=== PATIENT | female | born 1990 | race Caucasian/White ===

== ENCOUNTER 2017-05-24 07:25 | Inpatient (IN) | payer OTHER ==
[~2017-05-24] VITALS: Ht 167.6 cm; Wt 115.7 kg
[~2017-05-24 07:25] MED LIST: ATEN50TA8 PO; FIORICET PO; LORA-741 PO; LOVAZA 1 GM PO; MOME50SP5; NORGTAB36 PO; ROSU40TA PO; TOPI25TA99 PO; [UNRECOGNIZED DRUG - CODE] PO
[2017-05-24] MEDS ORDERED: LACTATED RINGER'S 1000ML 1,000 ML IV PRN (07:59)
[2017-05-24] MEDS ORDERED: PENICILLIN G POTASSIUM IV 6 MU in DEXTROSE 5% 250ML 250 ML IV ONE (08:15)
[2017-05-24] MEDS: MISOPROSTOLTAB 50 MCG TAB PO SCH ×3 (08:27→16:39)
[2017-05-24 08:47] LABS: HEMATOCRIT 35.9 % (37-47); MEAN CELL VOLUME 88.6 fL (80-100); MEAN CORPUSCULAR HEMOGLOBIN 28.1 pg (25-34); MEAN CORPUSCULAR HGB CONC 31.8 g/dl (32-36); MEAN PLATELET VOLUME 10.3 fL (7.4-10.4); PLATELET COUNT 254 K/uL (130-400); RED BLOOD COUNT 4.05 M/uL (4.2-5.4); WHITE BLOOD COUNT 8.76 K/uL (4.8-10.8)
[2017-05-24 09:13] LABS: ALT/SGPT 20 U/L (12-78); AST/SGOT 16 U/L (15-37); BLOOD UREA NITROGEN 7 mg/dl (7-18); BUN/CREATININE RATIO 7.7 (10-20); CALCIUM 9.1 mg/dl (8.5-10.1); CARBON DIOXIDE 22 mmol/L (21-32); CHLORIDE 104 mmol/L (98-107); CREATININE 0.84 mg/dl (0.60-1.20); GLUCOSE 82 mg/dl (70-99); POTASSIUM 3.8 mmol/L (3.5-5.1); SODIUM 137 mmol/L (136-145)
[2017-05-24 09:15] LABS: ALB/GLOB RATIO 0.6 (0.9-2); ALKALINE PHOSPHATASE 140 U/L (45-117)
[2017-05-24] MEDS ORDERED: BUTORPHANOL TARTRATE 1 MG/ML VIAL IV PRN (12:00)
[2017-05-24] MEDS ORDERED: ASPI81TA28 PO (13:43)
[2017-05-24 14:00] VITALS: Ht 167.6 cm; Wt 115.7 kg
[2017-05-24] MEDS: LACTATED RINGER'S 1000ML 1,000 ML IV SCH (18:05)
[2017-05-24] MEDS ORDERED: EpHEDrine SULFATE INJ 50 MG/ML AMP ONE (19:27)
[2017-05-24] MEDS ORDERED: BUPIVACAINE 0.25% 30 ML VIAL ONE ×2 (19:27→22:12)
[2017-05-24] MEDS ORDERED: FENTANYL CITRATE INJ 50 MCG/1 ML 2 ML VIAL ONE ×2 (19:28→22:21)
[2017-05-24] MEDS ORDERED: FENTANYL 2MCG/ML ROPIV 1.25MG/ML 100ML BAG EPI ONE (19:28)
[2017-05-24] MEDS ORDERED: LACTATED RINGER'S 1000ML 500 ML IV PRN ×2 (19:29→22:39)
[2017-05-24] MEDS ORDERED: OXYTOCIN 30 UNITS/500ML NSS IV PRN (19:30)
--- NOTE | 2017-05-24 20:40 | Anesthesiology Progress Note ---
Anesthesia Post Op Note Date & Time May 24, 2017 at 20:40 Vital Signs Pain Intensity: 7.0 Notes Mental Status: alert / awake / arousable, participated in evaluation Pt Amnestic to Procedure: Yes Nausea / Vomiting: adequately controlled Pain: adequately controlled Airway Patency, RR, SpO2: stable & adequate BP & HR: stable & adequate Hydration State: stable & adequate Anesthetic Complications: no major complications apparent
[2017-05-24] MEDS: PENICILLIN G POTASSIUM IV 3 MU in DEXTROSE 5% 100ML 100 ML IV PRN (22:04)
[2017-05-24] MEDS ORDERED: NALOXONE HCL INJ 1 MG in SODIUM CHLORIDE 0.9% 1000ML 1,000 ML IV PRN (22:39)
[2017-05-24] MEDS ORDERED: EpHEDrine SULFATE INJ 50 MG/ML AMP IV PRN (22:45)
[2017-05-24] MEDS ORDERED: DiphenhydrAMINE HCL 50 MG/ML VIAL IV PRN (22:45)
[2017-05-24] MEDS ORDERED: NALBUPHINE HCL INJ 10 MG/ML AMP IV PRN (22:45)
[2017-05-24] MEDS ORDERED: NALOXONE HCL INJ 0.4 MG/1 ML VIAL/CARP IV PRN (22:45)
[2017-05-24] MEDS: FENTANYL 2MCG/ML ROPIV 1.25MG/ML 100ML BAG EPI PRN (23:02)
[2017-05-25] MEDS ORDERED: BUPIVACAINE 0.25% 30 ML VIAL ONE (01:05)
[2017-05-25] MEDS ORDERED: FENTANYL CITRATE INJ 50 MCG/1 ML 2 ML VIAL ONE (01:06)
[2017-05-25] MEDS: FENTANYL 2MCG/ML ROPIV 1.25MG/ML 100ML BAG EPI PRN ×3 (01:49→19:09)
[2017-05-25] MEDS: PENICILLIN G POTASSIUM IV 3 MU in DEXTROSE 5% 100ML 100 ML IV PRN ×2 (02:03→05:46)
[2017-05-25] MEDS: LACTATED RINGER'S 1000ML 1,000 ML IV SCH (05:46)
[2017-05-25] MEDS ORDERED: LACTATED RINGER'S 1000ML 1,000 ML IV SCH (08:01)
--- NOTE | 2017-05-25 08:08 | Vaginal Delivery Summary ---
Vaginal Delivery Summary Delivery Note live female over intact perineum ARNULFO with Apgars 7/9 weight pending. Delayed cord clamping followed by cord blood collection and spontaneous delivery of intact placenta. Small second degree tear repaired with 3/0 Vicryl suture. EBL 350 ml. Final sponge, needle and instrument count are correct. Mom and baby stable.
[2017-05-25] MEDS ORDERED: DIPHTHERIA/TETANUS/PERTUSSIS 0.5 ML SYR/VIAL IM. ONE (08:15)
[2017-05-25] MEDS ORDERED: OXYCODONE/ACETAMINOPHEN 5-325 TAB PO PRN (08:15)
[2017-05-25] MEDS ORDERED: BENZOCAINE 20% AER SPR 82.5 GM CAN EXT PRN (08:15)
[2017-05-25] MEDS ORDERED: LANOLIN OINT EXT PRN ×2 (08:15)
[2017-05-25] MEDS ORDERED: OXYTOCIN 30 UNITS/500ML NSS IV PRN (08:15)
[2017-05-25] MEDS ORDERED: MEASLES, MUMPS & RUBELLA VIRUS VIAL SQ. ONE (08:15)
[2017-05-25] MEDS ORDERED: SUPERCREAM 0.870 % 15GM JAR EXT PRN (08:15)
[2017-05-25] MEDS ORDERED: HYDROCORTISONE ACETATE 25 MG SUPP PR PRN (08:15)
[2017-05-25] MEDS ORDERED: ACETAMINOPHEN/CODEINE 300/30MG TAB PO PRN ×2 (08:15)
[2017-05-25] MEDS ORDERED: ACETAMINOPHEN 325 MG TAB PO PRN (08:15)
[2017-05-25] MEDS: IBUPROFEN 600 MG TAB PO PRN ×3 (09:31→19:15)
--- NOTE | 2017-05-25 09:49 | Anesthesia Procedure Note ---
Anesthesia Epidural Removal Nt Date & Time May 25, 2017 at 09:48 Vital Signs Pain Intensity: 4.0 Notes Mental Status: alert / awake / arousable, participated in evaluation Nausea / Vomiting: adequately controlled Pain: adequately controlled Airway Patency, RR, SpO2: stable & adequate BP & HR: stable & adequate Hydration State: stable & adequate Neuraxial Anesthesia: was administered Anesthetic Complications: no major complications apparent, pt satisfied with anesthetic care Epidural: removed without complications, with tip intact
[2017-05-25 10:30] VITALS: BP 135/87; PULSE 119; O2SAT 98
[2017-05-25 11:30] VITALS: BP 129/87; PULSE 116; TEMP 36.9; O2SAT 96
[2017-05-25 15:25] VITALS: BP_SYST 132; BP_SYST 133; BP_DIAS 90; BP_DIAS 94; PULSE 118; TEMP 36.6; O2SAT 97
[2017-05-25] MEDS: DOCUSATE SODIUM 100 MG CAP PO SCH (19:15)
[2017-05-25 19:30] VITALS: BP 144/94; PULSE 101; TEMP 36.5; O2SAT 98
[2017-05-26] VITALS (8 sets, daily range): BP systolic 128–168; BP diastolic 82–94; PULSE 71–99; TEMP 36.5–37; O2SAT 99
[2017-05-26] MEDS: IBUPROFEN 600 MG TAB PO PRN ×2 (00:59→05:26)
[2017-05-26] MEDS: DOCUSATE SODIUM 100 MG CAP PO SCH ×2 (08:35→19:45)
--- NOTE | 2017-05-26 09:20 | OB/GYN Progress Note ---
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 Subjective conversation w/ patient, physical exam Ambulation: ambulating normally Passing Gas: Yes Diet Tolerance: Regular Diet Lochia: Moderate Feeding Type: Breast Feeding Review of Systems Constitutional: No fever, No chills, No sweats, No weight loss, No weakness, No fatigue, No problem reported Respiratory: No cough, No sputum, No wheezing, No shortness of breath, No dyspnea on exertion, No dyspnea at rest, No hemoptysis, No problem reported Cardiac: No chest pain, No orthopnea, No PND, No edema, No claudication, No palpitations, No problem reported Breast: No see HPI, No breast lump, No change in shape, No nipple discharge, No breast pain, No problem reported Abdomen: No pain, No nausea, No vomiting, No diarrhea, No constipation, No GI bleeding, No problem reported Female : No see HPI, No dysuria, No urinary frequency, No hematuria, No incontinence, No abnormal vaginal bleeding, No vaginal discharge, No problem reported Objective Vital Signs Date Time Temp Pulse Resp B/P (MAP) Pulse Ox O2 Delivery O2 Flow Rate FiO2 05/26/17 04:00 36.6 90 18 136/88 (104) Room Air 05/26/17 00:30 36.5 92 18 143/94 (110) Room Air 05/26/17 00:30 Room Air 05/25/17 19:30 36.5 101 16 144/94 (111) 98 Room Air 05/25/17 15:25 97 Room Air 05/25/17 15:25 36.6 118 20 133/90 (104) 97 Room Air 132/94 (107) 05/25/17 11:30 36.9 116 20 129/87 (101) 96 Room Air 05/25/17 10:30 119 20 135/87 (103) 98 Room Air 05/25/17 10:30 98 Room Air Physical Exam General Appearance: WELL-APPEARING, WD/WN, NO APPARENT DISTRESS Respiratory/Chest: chest non-tender, lungs clear, normal breath sounds, no respiratory distress, no accessory muscle use Cardiovascular: regular rate, rhythm, no edema, no gallop, no JVD, no murmur Abdomen: normal bowel sounds, non tender, soft, no organomegaly, no pulsatile mass Fundus: Firm Incision Description: Clean, Dry & Intact Extremities: normal range of motion, non-tender, normal inspection, no pedal edema, no calf tenderness Laboratory Results Last 24 Hours Test 05/26/17 06:21 Hemoglobin 7.8 g/dL Hematocrit 24.0 % Assessment and Plan Day Number: 1 Continue Routine Care: PPD #1 Anemia- On Iron tabs pt doing well d/c home tomorrow
[2017-05-26] MEDS: FERROUS SULFATE 325 MG TAB PO SCH ×2 (09:26→12:53)
[2017-05-26] MEDS: PRENATAL VITAMIN TAB PO SCH (09:26)
[2017-05-26 12:37] LABS: HEMATOCRIT 25.1 % (37-47)
[2017-05-26] MEDS ORDERED: BISACODYL 5 MG TABEC PO SCH (20:00)
[2017-05-27] MEDS ORDERED: BISACODYL 10 MG SUPP PR PRN (07:00)
[2017-05-27 07:15] VITALS: BP 142/86; PULSE 80; TEMP 36.6; O2SAT 99
--- NOTE | 2017-05-27 07:46 | OB/GYN Progress Note ---
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 Patient is seen and examined. She feels well, no complaints. Ambulating without dizziness Voiding without difficulty Tolerating regular diet with out N&V Bleeding is minimal No fever/ chills/ CP/ SOB/ N&V/ Leg pain Breast feeding without problems Date Time Temp Pulse Resp B/P (MAP) Pulse Ox O2 Delivery O2 Flow Rate FiO2 05/27/17 07:15 36.6 80 20 142/86 (104) 99 Room Air 05/26/17 23:45 Room Air 05/26/17 23:45 36.6 71 16 128/82 (97) 99 Room Air 05/26/17 19:40 96 148/92 (110) 05/26/17 16:15 143/85 (104) 05/26/17 15:35 99 Room Air 05/26/17 15:35 37.0 92 18 168/91 (116) 99 Room Air 05/26/17 12:00 36.7 84 18 143/89 (107) Room Air 05/26/17 08:00 36.8 99 18 138/93 (108) Room Air 05/26/17 08:00 Room Air Last 24 Hours Test 05/26/17 12:10 Hemoglobin 7.8 g/dL Hematocrit 25.1 % PE: General: Alert, orientedx3, NAD Abd: soft, NT, fundus firm, below Umbilicus Perineum intact, Lochia rubra minimal Ext; NT, no edema AP: 26 yo s/p , ppd# 2 VSS Afebrile doing well On Atenolol for HTN Anemic. asymptomatic, on iron Continue routine care Instructions were given when to call All questions were answered D/C home , f/u in office
[2017-05-27] MEDS ORDERED: FRRS300 PO (07:48)
[2017-05-27] MEDS ORDERED: MTR600X PO (07:48)
[2017-05-27] MEDS ORDERED: PRENTAB26 PO (07:48)
[2017-05-27] MEDS ORDERED: CLC100 PO (07:48)
[2017-05-27] MEDS ORDERED: TNR50 PO (07:48)
--- NOTE | 2017-05-27 07:49 | Discharge Instructions ---
Discharge Instructions Date of Service May 27, 2017. Admission Reason for Admission: Induction Discharge Discharge Diagnosis / Problem: Discharge Goals Goal(s): Routine recovery after delivery Medications Continue Dispensed Medications: lansinoh Activity Recommendations Activity Limitations: as noted below Lifting Limitations: gradually increase as tolerated Exercise/Sports Limitations: until after follow-up appointment May Resume Sexual Activity: after follow-up appointment Shower/Bathe: no limitations Driving or Machine Use: ACTIVITY RECOMMENDATIONS: * Gradual return to full activity over the next 2-3 weeks. * No lifting - nothing heavier than baby over the next 2-3 weeks. * Do not engage in vigorous exercise, sexual activity or sports until cleared by your physician. * Do not drive or operate any motorized equipment until cleared by your physician. * You may shower/bathe daily. BREAST CARE: If you are not breast feeding: * Wear a supportive bra 24 hours a day for one to two weeks. * Avoid stimulating your breasts and nipples as much as possible during the first few weeks after delivery. * When taking a shower, have the warm water hit your back, not breasts. * When your breasts feel full, apply ice packs. Usually three to four times a day helps ease the discomfort. * Take a mild pain medication (Tylenol/Motrin) when you are uncomfortable. If breast feeding: * Use breast milk to lubricate nipples. Lansinoh cream may be used for sore nipples. You do not need to remove cream prior to breast feeding. If using a different brand of cream, check the label for directions regarding removal of cream prior to nursing. * Wear a supportive bra. * If having problems with breasts or breast feeding, call a test consultant or your health care provider. EPISIOTOMY CARE: After delivery, if you have an episiotomy (stitches), the following steps will ease discomfort and aid healing. * For the first 24 hours after delivery, place ice packs next to your episiotomy to help reduce swelling. * After the first 24 hour-period, sitz baths, either portable or in the tub, are suggested. A shower with a shower arm sprayed over the episiotomy may be comforting. * Marie care should be done after each voiding and bowel movement. Squirt warm water from a plastic bottle over the perineum (region of the body between the anus and urinary opening) and pat dry. * Use Dermoplast to ease discomfort. Shake container. [place] directly over the episiotomy. * Place a Tucks on a clean sanitary pad next to your episiotomy. OVER THE COUNTER MEDICATION: * For discomfort or pain, you may use Acetaminophen (Tylenol), Ibuprofen (Advil ), or Naproxen (Aleve) following the package directions. * For constipation you may use Colace following the package directions. SPECIAL CARE INSTRUCTIONS: When you are discharged from the hospital, it is important for you to follow the instructions listed below: * During the first week at home, you should be able to care for yourself and your baby. In addition, the usual light household activities are encouraged. * Limit your activities to the way you feel. Do not try to clean the house or move furniture. Be sensible. * If you actively engage in sports and have done so up until the time of your delivery, you may resume these activities as soon as you feel able. This may take up to one month or even longer. Use good judgment. * Continue to take your vitamins for at least six weeks after the of your baby. * Your diet need not be limited unless you were on a special diet before your delivery. Breast-feeding mothers need around 2500 calories per day and at least 64-80 ounces of fluid per day (8 to 10 glasses). * You should eat foods from the four major food groups. Crash diets or fad diets are to be avoided. Eating lean meats, fresh fruits and vegetables, low-fat dairy products, high fiber foods and a regular exercise program, will help you get back to your pre- weight without putting your health at risk. * Constipation is sometimes a problem after delivery. Take a mild laxative as needed. If breast feeding, Milk of Magnesia is acceptable to use. You may use a suppository or Fleets enema if no episiotomy. * A daily shower or tub bath is suggested. Be sure to thoroughly and gently dry the perineum. * A bloody vaginal discharge will usually continue until around four weeks post . A small amount of bleeding may continue for as long as six weeks. Vaginal discharge changes from the bright red bleeding after delivery to pink then brownish and finally yellowish-pink before becoming white and disappearing. * Bleeding may increase with activity. Your first period may come in 4-8 weeks. If you are breast feeding, your period may be delayed even longer. * [place] (sex) can begin whenever both you and your partner feel comfortable and do not have any form of genital infection. It is recommended that you wait until after your return appointment and discuss with your physician. If you have questions, please talk to your health care practitioner. A condom should be used to prevent infection and . * Foreplay, gentle intercourse and lubrication is very important the first several times to prevent pain. A water-based lubricant such as K-Y jelly or Astroglide may be used. * Tampons may be used six weeks after delivery. * Douching should be avoided for 6 weeks after delivery. * If you have RH negative blood and your baby is RH positive, you will receive RHOGAM by injection prior to discharge. The nurse will give you a card to keep with you that has the date and place that you received RHOGAM after delivery. * During your care, you had a Rubella screen done to check for the presence of rubella antibodies in your blood. If your test was negative, you will receive a Rubella vaccine prior to discharge. This vaccine may cause a fever, soreness at the injection site and flu-like symptoms. If these symptoms persist, notify your health care practitioner. is not advised for three months after a Rubella vaccine. There is a higher chance of having a baby with defects if conceived within three months of getting the vaccine. * If you were discharged 24 hours from delivery or before 48 hours: Visiting nurses will come to your home 48 hours after discharge to assess you and your baby. The visiting nurse will meet with you while you are in the hospital to arrange a time and get directions to your home. * Verbalizes understanding of car seat law as reviewed with patient nursing. * Car Seat hand-out given and reviewed with patient by nursing. * Shaken baby information reviewed with patient by nursing. Call you doctor if: * Heavy bleeding (saturating several pads an hour) or passing clots the size of your fist. * A fever >101 degrees F (38.3 degrees C) on two occasions four hours apart and/or chills. * Unusual pain in the pelvic or vaginal areas. * "Baby Blues" lasting longer than two weeks. If you have any questions or concerns, call your health care practitioner at . FOLLOW-UP VISIT: * Please call the office at to schedule a 6 week examination. It is important you keep this appointment. * It is important for you to make arrangements for either yearly or twice yearly check-ups thereafter. . Current Hospital Diet Patient's current hospital diet: Regular OB Diet Discharge Diet Recommended Diet: Regular Diet Pending Studies Studies pending at discharge: no Medical Emergencies . Who to Call and When: Medical Emergencies: If at any time you feel your situation is an emergency, please call 911 immediately. . Non-Emergent Contact Non-Emergency issues call your: Primary Care Provider, Surgeon Call Non-Emergent contact if: temperature is above 100.5, your pain is not controlled, your pain is worsening . . "Provider Documentation" section prepared by [place]. . VTE Core Measure Inpt VTE Proph given/why not?: Treatment not indicated
[2017-05-27] MEDS: PRENATAL VITAMIN TAB PO SCH (07:58)
[2017-05-27] MEDS: DOCUSATE SODIUM 100 MG CAP PO SCH (07:58)
[2017-05-27] MEDS: FERROUS SULFATE 325 MG TAB PO SCH (07:58)
[2017-05-27] MEDS: IBUPROFEN 600 MG TAB PO PRN (09:21)
[2017-05-27 13:00] VITALS: BP_DIAS 86; PULSE 80; TEMP 36.6
== END 2017-05-27 13:12 | disposition home or self-care (01) | DRG 775 ==
LOC: C.LD 07:25 → C.OBG 05-25 10:35
PROVIDERS: ADMIT Obstetrics & Gynecology; ATTEND Obstetrics & Gynecology
PROC: 0KQM0ZZ Repair Perineum Muscle, Open Approach (ICD-10-PCS; principal; 2017-05-25)
PROC: 10E0XZZ Delivery of Products of Conception, External Approach (ICD-10-PCS; principal; 2017-05-25)
DX: O99.214 Obesity complicating childbirth (principal); Z68.41 Body mass index [BMI] 40.0-44.9, adult; O99.824 Streptococcus B carrier state complicating childbirth; O70.1 Second degree perineal laceration during delivery; E66.9 Obesity, unspecified; Z3A.39 39 weeks gestation of pregnancy; Z37.0 Single live birth

== ENCOUNTER 2017-06-23 20:00 | Emergency (ER) | payer OTHER ==
[~2017-06-23] VITALS: Ht 167.6 cm; Wt 106.3 kg
[~2017-06-23 20:00] MED LIST changes: -ATEN50TA8 PO; +CLC100 PO; -FIORICET PO; +FRRS300 PO; -LORA-741 PO; -LOVAZA 1 GM PO; -MOME50SP5; +MTR600X PO; -NORGTAB36 PO; +PRENTAB26 PO; -ROSU40TA PO; +TNR50 PO; -TOPI25TA99 PO; -[UNRECOGNIZED DRUG - CODE] PO
[2017-06-23 20:02] VITALS: TEMP 36.7; Ht 167.6 cm; Wt 106.3 kg
[2017-06-23] MEDS ORDERED: ATEN50TA8 PO (20:37)
[2017-06-23] MEDS ORDERED: FERR325T5 PO (20:37)
[2017-06-23] MEDS ORDERED: PSYL1CAP4 PO (20:37)
[2017-06-23] MEDS ORDERED: PRENTAB26 PO (20:37)
[2017-06-23] MEDS ORDERED: DOCU100C31 PO (20:37)
[2017-06-23 22:13] VITALS: BP 127/89; PULSE 75; O2SAT 97
[2017-06-23] MEDS ORDERED: BISA-16 PO (22:48)
--- NOTE | 2017-06-24 00:47 | EMERGENCY ROOM VISIT NOTE ---
History Report prepared by Chinedu: Suma Norton Under the Supervision of: Dr. Pete Christine M.D. First contact with patient: 21:15 Chief Complaint: RECTAL BLEEDING Stated Complaint: RECTAL BLEEDING Nursing Triage Summary: 29 days post , rectal bleeding today, blood present when wiping, History of Present Illness The patient is a 26 year old female who presents to the Emergency Room with complaints of intermittent rectal bleeding beginning today. The patient states that she is 28 days post and has been having constipation since her . She notes that she did have a hemorrhoid during her and has been using the cream that they gave her when she was here. She reports that she has been taking iron since she had the baby and she is supposed to take it for 6 weeks. The patient states that she has been taking 2 stool softeners a day but has been passing large hard stools despite the softeners. She notes that there is some blood with her stool in the toilet bowl and she has blood with wiping. She notes that she did have a very hard large bowel movement today that she strained for significantly. Pt denies LOC, headache, fevers, chills, diaphoresis, visual changes, neck pain, chest pain, breathing difficulties, nausea, vomiting, abdominal pain, back pain, melena, hematochezia, urinary symptoms, numbness, weakness, lymphadenopathy, rash, or other complaints. Source of History: patient Onset: today Position: other (rectum) Quality: other (bleeding) Timing: intermittent Note: Pt complains of constipation and hemorrhoids. Review of Systems See HPI for pertinent positives and negatives. A total of ten systems were reviewed and were otherwise negative. Past Medical & Surgical Medical Problems: (1) Dental abscess (2) Elective induction of labor planned (3) HTN (hypertension) (4) Hyperlipidemia (5) Obesity affecting in third trimester Surgical Problems: (1) S/P appendectomy (2) [place] teeth removed Family History No pertinent family history stated. Social History Smoking Status: Never Smoker Drug Use: none Marital Status: Housing Status: lives with family Occupation Status: employed Current/Historical Medications Scheduled Atenolol (Tenormin), 50 MG PO QPM Docusate Sodium (Docusate Sodium), 100 MG PO BID Ferrous Sulfate (Ferrous Sulfate), 325 MG PO DAILY Multivit/Min/Iron/Fol Ac/Pren ( Vitamin), 1 TAB PO DAILY Psyllium (Fiber), 0.52 MG PO DAILY Scheduled PRN Bisacodyl (Dulcolax), 1-2 TAB PO UD PRN for Constipation Allergies Coded Allergies: No Known Allergies (Unverified , 05/25/17) Physical Exam Vital Signs Date Time Temp Pulse Resp B/P (MAP) Pulse Ox O2 Delivery O2 Flow Rate FiO2 06/23/17 22:13 75 18 127/89 97 Room Air 06/23/17 20:02 36.7 83 18 134/91 100 Room Air Physical Exam GENERAL: Awake, alert, well-appearing, in no distress HENT: Normocephalic, atraumatic. Oropharynx unremarkable. EYES: Normal conjunctiva. Sclera non-icteric. NECK: Supple. No nuchal rigidity. FROM. No JVD. RESPIRATORY: Clear to auscultation. CARDIAC: Regular rate, normal rhythm. Extremities warm and well perfused. Pulses equal. ABDOMEN: Soft, non-distended. No tenderness to palpation. No rebound or guarding. No masses. RECTAL: Deferred. MUSCULOSKELETAL: Chest examination reveals no tenderness. The back is symmetrical on inspection without obvious abnormality. There is no CVA tenderness to palpation. No joint edema. LOWER EXTREMITIES: Calves are equal size bilaterally and non-tender. No edema. No discoloration. NEURO: Normal sensorium. No sensory or motor deficits noted. SKIN: No rash or jaundice noted. RECTAL: Mild to moderate hemorrhoid present, no active bleeding. Multiple mucosa fissures noted without signs of infection. Medical Decision & Procedures ED Course 2236: I reevaluated and updated the patient. 225: I reevaluated the patient. Discussed results and discharge instructions: She verbalized understanding and agreement. The patient is ready for discharge. Medical Decision Triage Nursing notes reviewed. The patient's presentation and history were concerning for rectal bleeding and constipation. Etiologies such as fissure, hemorrhoids, diverticulosis, AVM, coagulopathy, colitis, inflammatory bowel disease, malignancy, Karen-Fuentes tear, esophagitis , peptic ulcer disease, variceal bleed, as well as others were entertained. The patient was evaluated. Physical examination reveals mild hemorrhoidal disease. There is no signs of infection. She had several anal fissures noted. There is no active bleeding. The patient has a benign abdomen. There was no indication for blood work at this time. The patient is on iron but is doing well. She has no symptoms of significant anemia. As she has had significant constipation developed since taking the iron I told her to hold this temporarily. She will add Dulcolax, increase fiber in her diet, increase fluids , and continue the Colace. I discussed sitz baths and also continuing Preparation H or topical treatments. She worsens in any way she will be back. She will follow-up as an outpatient. I gave my usual and customary discussion regarding this issue. By the evaluation outlined above other emergent etiologies such as those listed in the differential, as well as others, were deemed relatively unlikely. The patient was educated about the findings as listed above. All questions were answered and the patient was pleased with the treatment. Return instructions were outlined and the patient was discharged in stable condition. The patient was referred to her PCP for follow-up for a recheck of the current condition. Medication Reconcilliation Current Medication List: was personally reviewed by me Blood Pressure Screening Patient's blood pressure: Elevated blood pressure Blood pressure disposition: Elevated BP felt to be situational Impression Primary Impression: Constipation Additional Impression: Anal fissure Scribe Attestation The scribe's documentation has been prepared under my direction and personally reviewed by me in its entirety. I confirm that the note above accurately reflects all work, treatment, procedures, and medical decision making performed by me. Departure Information Dispostion Home / Self-Care Prescriptions Bisacodyl (DULCOLAX) 5 Mg Tab 1-2 TAB PO UD Y for Constipation, #8 TAB Prov: Pete Christine MD 06/23/17 Referrals No Doctor, Assigned (PCP) Forms HOME CARE DOCUMENTATION FORM, IMPORTANT VISIT INFORMATION, WORK / SCHOOL INSTRUCTIONS Patient Instructions [facility] Additional Instructions Hold the iron supplement until follow-up. Rest and drink plenty of fluids. Dulcolax 1-2 tabs daily until constipation results. Colace, 100mg twice daily to avoid constipation. Continue Preparation H. Increase fiber in your diet. Sitz bath or shower after each bowel movement. Avoid straining if possible. Return to the ER for worsening rectal pain, vomiting, fevers, bloody stools, or as needed. Follow-up with your primary care physician in 2 to 3 days for a recheck of your current condition. Problem Qualifiers
== END 2017-06-23 22:57 | disposition still patient (30) ==
LOC: C.EDB 20:01
DX: K59.00 Constipation, unspecified (principal); K60.2 Anal fissure, unspecified; K62.5 Hemorrhage of anus and rectum; O90.89 Other complications of the puerperium, not elsewhere classified

== ENCOUNTER 2020-12-06 05:32 | Inpatient (IN) ==
--- NOTE | 2020-12-05 15:17 | Anesthesiology Progress Note ---
Date of Service December 05, 2020 Subjective Patient late add-on for scheduled 12/06 for macrosomia. Patient did not have time to obtain preop Covid testing prior to DOS. Called and spoke with patient 12/05: travel screen negative, no known COVID-19 positive contacts, no current COVID-19 related symptoms. Case reviewed with Dai Bonner, decision for [facility] AM DOS (order placed). Patient, Dr. Henson, surgeon's office and L&D made aware.
[2020-12-06] MEDS ORDERED: LACTATED RINGER'S 1,000 ML IV SCH ×2 (05:45→09:15)
[2020-12-06] MEDS ORDERED: CITRIC ACID/SODIUM CITRATE 15 ML UDC PO SCH (06:00)
[2020-12-06] MEDS ORDERED: ceFAZolin 2000MG 2,000 MG/15 ML SYR IV SCH (06:00)
[2020-12-06 06:02] LABS: Basophils # (auto) 0.01 K/uL (0-0.2); Basophils % (auto) 0.1 %; Eosinophils % (auto) 1.3 %; Hematocrit (blood only) 34.6 % (37-47); Hemoglobin 11.8 g/dL (12.0-16.0); Immature Granulocytes # (auto) 0.03 K/uL (0.00-0.02); Immature Granulocytes % (auto) 0.4 %; Lymphocytes # (auto) 1.75 K/uL (1.2-3.4); Lymphocytes % (auto) 21.9 %; Mean Corpuscular Hemoglobin 30.9 pg (25-34); Mean Corpuscular Volume 90.6 fL (80-100); Mean Platelet Volume 9.8 fL (7.4-10.4); Monocytes # (auto) 0.73 K/uL (0.11-0.59); Monocytes % (auto) 9.1 %; Neutrophils # (auto) 5.38 K/uL (1.4-6.5); Neutrophils % (auto) 67.2 %; Platelet Count 209 K/uL (130-400); RDW Coefficient of Variation 13.7 % (11.5-14.5); RDW Standard Deviation 44.8 fL (36.4-46.3); Red Blood Count 3.82 M/uL (4.2-5.4)
[2020-12-06 06:15] LABS: Mean Corpuscular Hgb Conc 34.1 g/dL (32-36)
[2020-12-06] MEDS: LACTATED RINGER'S 1,000 ML IV SCH ×2 (07:01→20:28)
--- NOTE | 2020-12-06 07:27 | Anesthesiology Consultation ---
Date of Service December 06, 2020 Assessment & Plan (1) Encounter for pre-operative examination: Chart Review Chart Review: Acceptable Risk for Surgery and Patient NOT seen in Pre Admission Testing Consults Requested none ASA ASA2 Proposed Anesthesia Anesthesia Type: Spinal (+ intrathecal naracotics) Risk / Benefits Reviewed With: PT / POA / Parent / Guardian, Accepts Plan and Informed Consent Obtained History Surgery Operation Date: 12/06/20 07:30 Proposed Procedures p Section - Adeel Nobles MD Height/Weight Height: 5 ft 6 in Weight: 117 kg Allergies Allergy/AdvReac Type Severity Reaction Status Date / Time No Known Drug Allergies Allergy Verified 12/05/20 14:28 Medications Home Medications Medication Instructions Recorded Confirmed Last Taken PNV cmb#95-ferrous fumarate-FA 1 tab PO QAM 12/26/19 12/06/20 12/05/20 [] cholecalciferol (vitamin D3) 5,000 unit PO QAM 12/26/19 12/06/20 12/05/20 [Vitamin D3] labetalol 100 - 150 mg PO BID 12/26/19 12/06/20 12/06/20 05:00 metformin 500 mg PO BID 12/26/19 12/06/20 12/04/20 Active Medications Generic Name Dose Route Start Last Admin Trade Name Freq PRN Reason Stop Dose Admin Lactated Ringer's 1,000 mls @ 125 mls/hr 12/06/20 06:35 12/06/20 07:01 Lr IV 01/05/21 06:34 125 mls/hr .Q8H JETHRO Administration Past Medical History Medical History Anal fissure Cardiac murmur A CHILD Chronic back pain Constipation Familial hypercholesterolemia 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 COLON HTN (hypertension) Hx of migraines Hyperlipidemia PCOS (polycystic ovarian syndrome) ON METFORMIN Ureteral calculus Exercise / Class Metabolic Activity II 4-5 Yardwork/Stairs/Walk up hill Past Family History Family History Mother Family history of diabetes mellitus PRE DIABETIC Other Family history non-contributory Past Surgical History Surgical History History of anesthesia reaction EPIDURAL WITH LAST VAGINAL DELIVERY WAS NOT EFFECTIVE-DID NOT PROVIDE PAIN RELIEF ( 3 YRS AGO) S/P appendectomy [place] teeth removed Past Anesthesia History No Hx of Anesthesia Complications and No Family Hx of Anesthesia Complications History of PONV No Hx of PONV and No Hx of Motion Sickness Social History Smoking Status: Never smoker Do You Dip or Chew Tobacco: No Hx Alcohol Use: No Hx Substance Use: No Physical Exam Vital Signs Last Vital Signs Temp 37.2 C 12/06/20 05:47 Pulse 98 H 12/06/20 05:46 Resp 18 12/06/20 05:47 BP 139/85 12/06/20 05:46 Constitutional + obese ENMT Mouth: no dentition abnormality Thyromental Distance: > or= 3.5 Finger Breadths Mallampati Class: II Neck normal visual inspection Respiratory normal respiratory effort Auscultation: lungs clear to auscultation bilaterally Cardiovascular Rate/Rhythm: regular rate and regular rhythm Psychiatric Orientation: alert Testing Laboratory Results 12/06/20 05:48 Blood Type A Positive 12/06/20 05:48 Antibody Screen NEGATIVE 12/06/20 05:48
[2020-12-06] MEDS ORDERED: MoRPHine SULFATE PF 1 MG/ML 10 ML AMP/VIAL ONE (07:34)
[2020-12-06] MEDS ORDERED: fentaNYL citrate 100 MCG/2 ML VIAL ONE (07:34)
--- NOTE | 2020-12-06 07:35 | History & Physical Bridge Note ---
Date of Service December 06, 2020 History & Physical Bridge Note I have examined the patient, reviewed the History & Physical and in the interval since the performance of the History & Physical I have noted the following changes of clinical significance: no changes noted
[2020-12-06] MEDS ORDERED: OXYTOCIN 10 UNITS/ML VIAL IM ONE (08:26)
[2020-12-06] MEDS ORDERED: METHYLERGONOVINE MALEATE 0.2 MG/ML AMP ONE (08:30)
[2020-12-06] MEDS ORDERED: PHENYLEPHRINE 100MCG/ML 5ML SYR ONE (08:30)
[2020-12-06] MEDS ORDERED: KETOROLAC 30 MG/ML VIAL ONE ×3 (08:30→20:34)
[2020-12-06] MEDS ORDERED: OXYTOCIN 10 UNITS/ML VIAL ONE (08:30)
[2020-12-06] MEDS ORDERED: miSOPROStoL 200 MCG TAB ONE (08:48)
--- NOTE | 2020-12-06 09:08 | Post Operative Brief Note ---
Immediate Post Op Note v1 Date of Surgery December 06, 2020 Pre & Post Diagnosis Operation Date: 12/06/20 07:30 Pre-Op Diagnosis: to Term; Primary for LGA Post-Op Diagnosis: to Term; Primary for LGA I identified the patient and participated in the time-out.: Yes Procedure Operation Date: 12/06/20 07:30 Actual Procedures p Section; Live Male at 0811(Bilateral) - Adeel Nobles MD Surgeon Adeel Nobles MD [employer] dr Louis Estimated Blood Loss 600 Findings Consistent with Post-Op Diagnosis Drains Maier Catheter
[2020-12-06] MEDS ORDERED: SENNA 8.6 MG TAB PO PRN (09:09)
[2020-12-06] MEDS ORDERED: MAGNESIUM HYDROXIDE SUSP 30 ML UDC PO PRN (09:09)
[2020-12-06] MEDS ORDERED: PROMETHAZINE HCL 25 MG in SODIUM CHLORIDE 0.9% 50 ML IV PRN (09:09)
[2020-12-06] MEDS ORDERED: SUPERCREAM 0.870% 15 GM JAR EXT PRN (09:09)
[2020-12-06] MEDS ORDERED: diphenhydrAMINE 50 MG/ML VIAL IV PRN (09:09)
[2020-12-06] MEDS ORDERED: diphenhydrAMINE Capsule 25 MG CAP PO PRN (09:09)
[2020-12-06] MEDS ORDERED: DIPHTHERIA/TETANUS/PERTUSSIS 0.5 ML SYR/VIAL IM ONE (09:09)
[2020-12-06] MEDS ORDERED: BENZOCAINE 20% AER SPR 82.5 GM CAN EXT PRN (09:09)
[2020-12-06] MEDS ORDERED: HYDROCORTISONE ACETATE 25 MG SUPP PR PRN (09:09)
[2020-12-06] MEDS ORDERED: ONDANSETRON INJ 2 MG/ML 2 ML VIAL IV PRN ×2 (09:09→12:11)
[2020-12-06] MEDS ORDERED: OXYTOCIN 20 UNITS in LACTATED RINGER'S 1,000 ML IV SCH (09:30)
[2020-12-06] MEDS ORDERED: NALOXONE HCL 1 MG in SODIUM CHLORIDE 0.9% 1000ML 1,000 ML IV PRN ×2 (09:53→12:11)
--- NOTE | 2020-12-06 11:03 | Operative Report (OR) ---
DATE OF OPERATION: 12/06/2020 INDICATION FOR SURGERY: 1. at term. 2. Suspected macrosomia, estimated weight was 4700 grams; this was a recommendation from Maternal/ Medicine. PREOPERATIVE DIAGNOSES: 1. at term. 2. Suspected macrosomia. POSTOPERATIVE DIAGNOSES: 1. at term. 2. Suspected macrosomia. SURGEON: Adeel Nobles MD. ANESTHESIA: Spinal. TELETYPIST: Melody Louis MD. PROCEDURE: Primary section. ESTIMATED BLOOD LOSS: 600 mL. INTRAVENOUS FLUIDS: 1200 mL. URINE OUTPUT: 150 mL of clear urine at the end of the procedure. FINDINGS: Normal uterus, tubes, and adnexa. The is a male in cephalic presentation, Apgars 8 and 8. Abdominal exam is otherwise unremarkable. COMPLICATIONS: None. DRAINS: Maier catheter. PATHOLOGY: Placenta and cord blood. DISPOSITION: Stable to recovery room. DESCRIPTION OF PROCEDURE: The patient is taken to the operating room where she is prepped and draped in normal sterile fashion. Timeout is called. A Pfannenstiel incision is made and carried down to the fascia. Fascia is incised in the midline and extended laterally on both sides. The fascia is sharply dissected off the rectus abdominus muscles superiorly and inferiorly. The abdomen is entered. Once inside the abdomen, an Vadim retractor is placed for retraction. Vesicouterine peritoneum is sharply dissected off the lower segment of the uterus. A transverse incision is made on the uterus and extended laterally on both sides with bandage scissors. Amniotomy is performed and is delivered. Mouth is suctioned, cord is clamped and cut and handed over to the waiting pediatric team. Details of the is in the pediatric record. Placenta is manually removed. Uterus is exteriorized and cleared of all clots and debris. Uterus is closed in 2 layers with Vicryl stitch. There is good hemostasis post repair. Vesicouterine peritoneum is approximated using 2-0 plain suture. Copious amount of irrigation is used to irrigate the abdomen. Uterus is returned into the abdominal cavity and fascia is closed in a running fashion using PDS suture. SubQ space is irrigated and approximated with 2-0 plain. Skin is closed with evens. All instruments are removed from the abdomen including retractors, sutures, needles and are accounted for x2. The patient is returned to recovery in stable condition. I attest to the content of the Intraoperative Record and any orders documented therein. Any exception s are noted below.
[2020-12-06] MEDS: ACETAMINOPHEN 1000 MG/100 ML IV IV PRN ×2 (11:27→18:16)
[2020-12-06] MEDS ORDERED: ePHEDrine sulfate 50 MG/ML AMP IV PRN (12:11)
[2020-12-06] MEDS ORDERED: LACTATED RINGER'S 500 ML IV PRN (12:11)
[2020-12-06] MEDS ORDERED: NALOXONE HCL 0.08 MG in SYRINGE 1.8 ML IV PRN (12:11)
[2020-12-06] MEDS ORDERED: MoRPHine SULFATE PF 1 MG/ML 10 ML AMP/VIAL INT SPINAL ONE (12:11)
[2020-12-06] MEDS ORDERED: NALOXONE HCL 0.4 MG/1 ML VIAL/CARP IV PRN (12:11)
[2020-12-06] MEDS ORDERED: NO NARCOTICS OR SEDATIVES SCH (12:15)
[2020-12-06] MEDS ORDERED: SODIUM CHLORIDE 0.9% 1000ML 1,000 ML IV SCH (12:15)
[2020-12-06] MEDS ORDERED: DC INTRASPINAL MORPHINE SCH (12:15)
--- NOTE | 2020-12-06 12:57 | Anesthesiology Progress Note ---
Date of Service December 06, 2020 Anesthesia Post Procedure Vital Signs Vital Signs: Temp Pulse Resp BP Pulse Ox 12/06/20 11:00 84 94 12/06/20 10:59 84 94 12/06/20 10:55 73 150/84 H 96 12/06/20 10:50 82 95 12/06/20 10:49 77 94 12/06/20 10:46 65 148/81 H 12/06/20 10:45 65 95 12/06/20 10:42 65 94 12/06/20 10:40 75 95 12/06/20 10:35 78 133/74 95 12/06/20 10:30 71 95 12/06/20 10:28 78 94 12/06/20 10:25 66 135/73 95 12/06/20 10:20 73 95 12/06/20 10:16 72 146/82 H 93 12/06/20 10:15 64 96 12/06/20 10:10 74 96 12/06/20 10:06 67 130/61 12/06/20 10:05 71 96 12/06/20 10:00 78 97 12/06/20 09:59 76 94 12/06/20 09:55 36.3 C L 69 22 144/90 H 97 12/06/20 09:50 80 98 12/06/20 09:46 71 140/89 12/06/20 09:45 78 97 12/06/20 09:40 82 97 12/06/20 09:36 73 136/66 12/06/20 09:35 77 98 12/06/20 09:30 78 99 12/06/20 09:26 89 137/76 12/06/20 09:25 86 20 97 12/06/20 09:20 78 100 12/06/20 09:16 86 117/79 12/06/20 09:15 85 96 12/06/20 09:10 81 99 12/06/20 09:06 90 109/78 90 12/06/20 09:05 78 98 12/06/20 09:00 75 99 12/06/20 08:55 36.3 C L 78 22 115/67 98 12/06/20 05:47 37.2 C 18 12/06/20 05:46 98 H 139/85 Transfer of Care Handoff Completed per policy Notes Mental Status: alert / awake / arousable Nausea / Vomiting: adequately controlled Pain: adequately controlled Airway Patency, RR, SpO2: stable & adequate BP & HR: stable & adequate Hydration State: stable & adequate Neuraxial Anesthesia: was administered and sensory block is resolving Anesthetic Complications: no major complications apparent and Pt Satisfied with anesthetic care
[2020-12-06] MEDS: diphenhydrAMINE 50 MG/ML VIAL IV PRN (17:08)
[2020-12-06] MEDS: SIMETHICONE 80 MG CHEW PO SCH ×2 (17:09→20:39)
[2020-12-06] MEDS ORDERED: KETOROLAC 30 MG/ML VIAL IV PRN (22:19)
[2020-12-07] MEDS: diphenhydrAMINE 50 MG/ML VIAL IV PRN (00:12)
[2020-12-07 06:37] LABS: Basophils # (auto) 0.01 K/uL (0-0.2); Basophils % (auto) 0.1 %; Eosinophils # (auto) 0.08 K/uL (0-0.5); Eosinophils % (auto) 0.9 %; Hematocrit (blood only) 32.6 % (37-47); Hemoglobin 10.8 g/dL (12.0-16.0); Immature Granulocytes # (auto) 0.02 K/uL (0.00-0.02); Immature Granulocytes % (auto) 0.2 %; Lymphocytes # (auto) 1.28 K/uL (1.2-3.4); Lymphocytes % (auto) 14.8 %; Mean Corpuscular Hemoglobin 30.3 pg (25-34); Mean Corpuscular Hgb Conc 33.1 g/dL (32-36); Mean Corpuscular Volume 91.3 fL (80-100); Mean Platelet Volume 9.6 fL (7.4-10.4); Monocytes # (auto) 0.64 K/uL (0.11-0.59); Monocytes % (auto) 7.4 %; Neutrophils % (auto) 76.6 %; Platelet Count 188 K/uL (130-400); RDW Coefficient of Variation 13.5 % (11.5-14.5); RDW Standard Deviation 44.2 fL (36.4-46.3); Red Blood Count 3.57 M/uL (4.2-5.4); White Blood Count 8.63 K/uL (4.8-10.8)
[2020-12-07] MEDS: SIMETHICONE 80 MG CHEW PO SCH ×2 (08:03→20:08)
[2020-12-07] MEDS: PRENATAL VITAMIN 1 TAB PO SCH (08:03)
[2020-12-07] MEDS: IBUPROFEN 600 MG TAB PO PRN ×3 (08:03→18:07)
[2020-12-07] MEDS: FERROUS SULFATE 325 MG TAB PO SCH (08:04)
[2020-12-07] MEDS: DOCUSATE SODIUM 100 MG CAP PO SCH ×2 (08:04→20:07)
[2020-12-07] MEDS: oxyCODONE/ACETAMINOPHEN 5mg/325mg TAB PO PRN ×3 (08:04→18:08)
--- NOTE | 2020-12-07 11:08 | Obstetrical Progress Note ---
Date of Service December 07, 2020 Assessment & Plan Admission and Anticipated Discharge Date Admission Date: December 06, 2020 Subjective POD#1 doing well passing gas tolerating diet Physical Exam Constitutional: WD/WN, vitals as above well developed and comfortable abdomen soft and non-tender neg Homans neg edema Results & Data ([facility]) Vital Signs (Past 12 Hours) Vital Signs Temp Pulse Resp BP Pulse Ox 12/07/20 07:40 37.1 C 99 H 20 112/81 12/07/20 04:00 36.7 C 84 16 119/79 94 12/07/20 02:00 18 99 12/07/20 01:00 16 100 12/07/20 00:00 16 100 12/06/20 23:50 36.5 C 76 16 120/80 100 Laboratory Results Laboratory Results - last 48 hr 12/06/20 12/06/20 12/06/20 05:48 05:48 05:50 WBC 8.00 RBC 3.82 L Hgb 11.8 L Hct 34.6 L MCV 90.6 MCH 30.9 MCHC 34.1 RDW Std Deviation 44.8 RDW Coeff of Jhon 13.7 Plt Count 209 MPV 9.8 Immature Gran % (Auto) 0.4 Neut % (Auto) 67.2 Lymph % (Auto) 21.9 Dorado % (Auto) 9.1 Eos % (Auto) 1.3 Baso % (Auto) 0.1 Neut # (Auto) 5.38 Lymph # (Auto) 1.75 [place] # (Auto) 0.73 H Eos # (Auto) 0.10 Baso # (Auto) 0.01 Immature Gran # (Auto) 0.03 H COVID-19 Eval Order Covid19 [facility] SARS-CoV-2, RNA, NAAT Blood Type A Positive Antibody Screen NEGATIVE 12/06/20 12/07/20 05:50 06:13 WBC 8.63 RBC 3.57 L Hgb 10.8 L Hct 32.6 L MCV 91.3 MCH 30.3 MCHC 33.1 RDW Std Deviation 44.2 RDW Coeff of Jhon 13.5 Plt Count 188 MPV 9.6 Immature Gran % (Auto) 0.2 Neut % (Auto) 76.6 Lymph % (Auto) 14.8 [place] % (Auto) 7.4 Eos % (Auto) 0.9 Baso % (Auto) 0.1 Neut # (Auto) 6.60 H Lymph # (Auto) 1.28 [place] # (Auto) 0.64 H Eos # (Auto) 0.08 Baso # (Auto) 0.01 Immature Gran # (Auto) 0.02 COVID-19 Eval Order SARS-CoV-2, RNA, NAAT NEGATIVE Blood Type Antibody Screen
[2020-12-07] MEDS ORDERED: bisacodyL 5 MG TABEC PO SCH (20:00)
[2020-12-07] MEDS ORDERED: LABETALOL HCL 100 MG TAB PO SCH (21:30)
[2020-12-08] MEDS: IBUPROFEN 600 MG TAB PO PRN ×3 (00:29→11:24)
[2020-12-08] MEDS: oxyCODONE/ACETAMINOPHEN 5mg/325mg TAB PO PRN ×3 (00:29→13:37)
[2020-12-08 06:37] LABS: Hematocrit (blood only) 31.8 % (37-47); Hemoglobin 10.4 g/dL (12.0-16.0)
[2020-12-08] MEDS: FERROUS SULFATE 325 MG TAB PO SCH (07:27)
[2020-12-08] MEDS: PRENATAL VITAMIN 1 TAB PO SCH (07:27)
[2020-12-08] MEDS: SIMETHICONE 80 MG CHEW PO SCH ×2 (07:27→14:54)
[2020-12-08] MEDS: DOCUSATE SODIUM 100 MG CAP PO SCH (07:28)
[2020-12-08] MEDS ORDERED: LABETALOL HCL 100 MG TAB PO SCH (09:00)
[2020-12-08] MEDS ORDERED: bisacodyL 10 MG SUPP PR PRN (09:09)
--- NOTE | 2020-12-08 11:10 | Surgery Progress Note ---
Date of Service December 08, 2020 Assessment & Plan Admission and Anticipated Discharge Date Admission Date: December 06, 2020 Physical Exam Physical Exam: POD#2 passing gas tolerating diet out of bed ome swelling in lower legs Constitutional: WD/WN, vitals as above well developed and comfortable incision c/d/i abdomen soft and non-tender minimal swelling in lower extremities neg Berkley's for d/c in AM Results & Data ([facility]) Vital Signs (Past 12 Hours) Vital Signs Temp Pulse Resp BP Pulse Ox 12/08/20 03:15 91 H 123/82 12/07/20 23:25 36.6 C 91 H 18 120/78 96 Laboratory Results 12/06/20 12/06/20 12/06/20 05:48 05:48 05:50 WBC 8.00 RBC 3.82 L Hgb 11.8 L Hct 34.6 L MCV 90.6 MCH 30.9 MCHC 34.1 RDW Std Deviation 44.8 RDW Coeff of Jhon 13.7 Plt Count 209 MPV 9.8 Immature Gran % (Auto) 0.4 Neut % (Auto) 67.2 Lymph % (Auto) 21.9 Piatt % (Auto) 9.1 Eos % (Auto) 1.3 Baso % (Auto) 0.1 Neut # (Auto) 5.38 Lymph # (Auto) 1.75 Piatt # (Auto) 0.73 H Eos # (Auto) 0.10 Baso # (Auto) 0.01 Immature Gran # (Auto) 0.03 H COVID-19 Eval Order Covid19 IDNow [facility] SARS-CoV-2, RNA, NAAT Blood Type A Positive Antibody Screen NEGATIVE 12/06/20 12/07/20 12/08/20 05:50 06:13 06:24 WBC 8.63 RBC 3.57 L Hgb 10.8 L 10.4 L Hct 32.6 L 31.8 L MCV 91.3 MCH 30.3 MCHC 33.1 RDW Std Deviation 44.2 RDW Coeff of Jhon 13.5 Plt Count 188 MPV 9.6 Immature Gran % (Auto) 0.2 Neut % (Auto) 76.6 Lymph % (Auto) 14.8 Piatt % (Auto) 7.4 Eos % (Auto) 0.9 Baso % (Auto) 0.1 Neut # (Auto) 6.60 H Lymph # (Auto) 1.28 Piatt # (Auto) 0.64 H Eos # (Auto) 0.08 Baso # (Auto) 0.01 Immature Gran # (Auto) 0.02 COVID-19 Eval Order SARS-CoV-2, RNA, NAAT NEGATIVE Blood Type Antibody Screen
--- NOTE | 2020-12-15 01:59 | Discharge Summary (DS) ---
CHIEF COMPLAINT AND HISTORY OF PRESENT ILLNESS: This is a 30-year-old G2, P1, due date was 12/20/2020. The patient was 38 weeks on 12/06/2020 with ____ macrosomia. She had been seen by maternal medicine, followed by care, and recommendation was to have her delivered at gestation. So the patient presented to [facility] on the above-mentioned date and underwent primary section. Details of surgery and are in the respective records. Surgery was otherwise unremarkable. The patient did well in recovery, met all milestones for day 1, and was discharged home safely in stable condition on ____ which was 12/08/2020. PAST MEDICAL HISTORY: The patient had history of anal fissures, cardiac murmur, chronic back pain, constipation, familial hypercholesterolemia, hypertension, migraines, hyperlipidemia, and polycystic ovary syndrome. PAST SURGICAL HISTORY: The patient had history of appendectomy and dental surgery in the past. FAMILY HISTORY: Otherwise was noncontributory. SOCIAL HISTORY: The patient was , lives with spouse and child. Denies drug, tobacco, or alcohol use. ALLERGIES: The patient had no known drug allergy. REVIEW OF SYSTEMS: Negative except as dictated on the HPI. PHYSICAL EXAMINATION: VITAL SIGNS: On day of discharge showed vitals with the following, blood pressure 146/88, pulse of 96, respiration of 20, temperature of 36.4. HEART: S1, S2, regular rhythm and rate. LUNGS: Clear to auscultation bilaterally. ABDOMEN: Nontender, nondistended. Incision site was clean, dry, and intact. There was decreased lochia. EXTREMITIES: Showed no cyanosis, clubbing, or edema. LABORATORY DATA: H and H on 12/08/2020 was 10.4 and 31.8. CONDITION ON DISCHARGE: Stable. OPERATION: section for macrosomia. DISCHARGE DIAGNOSIS: Postoperative after section. PLAN ON DISCHARGE: The patient is discharged home with instructions regarding activity, diet, followup appointment, and medication.
== END 2020-12-08 16:10 | disposition home or self-care (01) | DRG 787 ==
LOC: ASU 05:32 → 4S1 05:35 → 4S2 13:11